=== PATIENT | male | born 1995 | race Caucasian/White ===

== ENCOUNTER 2017-05-28 12:40 | Emergency (ER) | payer OTHER, MEDICAID | END 2017-05-28 19:07 | disposition home or self-care (01) | LOC: FTE 12:40 | DX: H61.22 Impacted cerumen, left ear (principal); J45.909 Unspecified asthma, uncomplicated; I10 Essential (primary) hypertension | CPT/HCPCS: 69209; 99282-25 ==

== ENCOUNTER 2017-06-13 20:06 | Emergency (ER) | payer OTHER, MEDICAID ==
[2017-06-14] MEDS: CEPHALEXIN 500 MG CAP PO (01:01)
== END 2017-06-14 01:12 | disposition home or self-care (01) ==
LOC: E/R 20:06
DX: T81.4XXA Infection following a procedure, initial encounter (principal); I10 Essential (primary) hypertension; J45.909 Unspecified asthma, uncomplicated; R40.2142 Coma scale, eyes open, spontaneous, at arrival to emergency department; R40.2362 Coma scale, best motor response, obeys commands, at arrival to emergency department; R40.2252 Coma scale, best verbal response, oriented, at arrival to emergency department; Y75.8 Miscellaneous neurological devices associated with adverse incidents, not elsewhere classified
CPT/HCPCS: 99283; Z7502

== ENCOUNTER 2017-12-11 22:02 | Emergency (ER) | payer OTHER ==
[2017-12-12 00:50] LABS: ADD UMIC YES; UR ASCORBIC ACID NEGATIVE (NEGATIVE); UR BACTERIA FEW /HPF (NONE SEEN); UR BILIRUBIN (Dip) NEGATIVE (NEGATIVE); UR BLOOD (Dip) 3+ mg/dL (NEGATIVE); UR BUDDING YEAST FEW /HPF (NONE SEEN); UR CLARITY CLOUDY (CLEAR); UR COLOR YELLOW (YELLOW); UR GLUCOSE (Dip) NEGATIVE (NEGATIVE); UR KETONES (Dip) NEGATIVE (NEGATIVE); UR LEUKOCYTE ESTERASE (Dip) 3+ Leu/ul (NEGATIVE); UR MUCUS FEW /HPF (NONE SEEN); UR NITRITE (Dip) POSITIVE (NEGATIVE); UR RBC 43 /HPF (0-5); UR SPECIFIC GRAVITY (Dip) 1.009 (1.003-1.030); UR SQUAMOUS EPITHELIAL CELL FEW /HPF (FEW); UR TOTAL PROTEIN (Dip) NEGATIVE (NEGATIVE); UR UROBILINOGEN (Dip) NEGATIVE (NEGATIVE); UR WBC 42 /HPF (0-5)
[2017-12-12] MEDS: AZITHROMYCIN 250 MG TAB PO (00:58)
[2017-12-12] MEDS: CEFTRIAXONE 250 MG INJ IM (00:59)
== END 2017-12-12 02:27 | disposition home or self-care (01) ==
LOC: FTE 22:02
DX: N30.90 Cystitis, unspecified without hematuria (principal); I10 Essential (primary) hypertension; J45.909 Unspecified asthma, uncomplicated
CPT/HCPCS: 81001; 87086; 96372; 99284-25